=== PATIENT | female | born 1985 | race Hispanic/Latino ===

== ENCOUNTER 2019-02-21 12:07 | Emergency (ER) | payer MEDICAID ==
--- NOTE | 2019-02-21 12:28 | Event Note ---
ED Screening Note Date of service: 02/21/19 Time: 12:26 ED Screening Note: 34 y o female presents with lower pelvic cramping x 2 days LMP - 02/02/19 denies dysuris,n,v This initial assessment/diagnostic orders/clinical plan/treatment(s) is/are subject to change based on patients health status, clinical progression and re- assessment by fellow clinical providers in the ED. Further treatment and workup at subsequent clinical providers discretion. Patient/guardian urged not to elope from the ED as their condition may be serious if not clinically assessed and managed. Initial orders include: ua, upt
--- NOTE | 2019-02-21 13:18 | Emergency Department Report ---
ED Female HPI - General Chief complaint: Abdominal Pain Stated complaint: CRAMPING/POSS PREG Time Seen by Provider: 02/21/19 12:26 Source: patient Mode of arrival: Ambulatory Limitations: No Limitations - History of Present Illness Initial comments: Patient reports pelvic cramping and vaginal spotting that started last week. According to the patient her last regular cycle was five months ago Complaint: vaginal bleeding Onset/Timin -: week(s) Location: suprapubic Radiation: non-radiating Severity: moderate Severity scale (0 -10): 5 Quality: cramping Consistency: intermittent Improves with: none Worsens with: none Are you Now?: Yes (positive home test) Last Menstrual Period: 10/04/18 EDC: 07/11/19 Associated Symptoms: vaginal bleeding. denies: vaginal discharge, abdominal pain, nausea/vomiting, fever/chills, headaches, loss of appetite, dysuria, hematuria, rash, seizure, shortness of breath, syncope, weakness - Related Data Sexually active: Yes : 5 Para: 3 Previous Rx's Medication Instructions Recorded Last Taken Type metroNIDAZOLE [Flagyl] 500 mg PO Q12HR #14 tab 02/21/19 Unknown Rx Allergies Allergy/AdvReac Type Severity Reaction Status Date / Time No Known Allergies Allergy Verified 02/21/19 12:11 ED Review of Systems ROS: Stated complaint: CRAMPING/POSS PREG Other details as noted in HPI Constitutional: denies: chills, fever Eyes: denies: eye pain, eye discharge, vision change ENT: denies: ear pain, throat pain Respiratory: denies: cough, shortness of breath, wheezing Cardiovascular: denies: chest pain, palpitations, dyspnea on exertion, orthopnea, edema, syncope, paroxysmal nocturnal dyspnea Endocrine: no symptoms reported Gastrointestinal: abdominal pain. denies: nausea, diarrhea Genitourinary: urgency, discharge (BLOODY). denies: dysuria Musculoskeletal: denies: back pain, joint swelling, arthralgia Skin: denies: rash, lesions Neurological: denies: headache, weakness, paresthesias Psychiatric: denies: anxiety, depression Hematological/Lymphatic: denies: easy bleeding, easy bruising ED Past Medical Hx - Past Medical History Previous Medical History?: Yes Additional medical history: cervix opens early - Surgical History Past Surgical History?: Yes Additional Surgical History: leap x 2, - Social History Smoking Status: Current Every Day Smoker Substance Use Type: Marijuana - Medications Home Medications: Home Medications Medication Instructions Recorded Confirmed Last Taken Type metroNIDAZOLE [Flagyl] 500 mg PO Q12HR #14 tab 02/21/19 Unknown Rx ED Physical Exam - General Limitations: No Limitations General appearance: alert, in no apparent distress - Respiratory Respiratory exam: Present: normal lung sounds bilaterally. Absent: respiratory distress, wheezes, rales, rhonchi, stridor, chest wall tenderness, accessory muscle use, decreased breath sounds, prolonged expiratory - Cardiovascular Cardiovascular Exam: Present: tachycardia, normal heart sounds. Absent: normal rhythm, bradycardia, irregular rhythm, systolic murmur, diastolic murmur, rubs, gallop, clicks, JVD, S3, S4 - GI/Abdominal GI/Abdominal exam: Present: soft, tenderness (suprapubic), normal bowel sounds. Absent: distended, guarding, rebound, rigid - Rectal Rectal exam: Present: deferred - External exam: Present: normal external exam. Absent: erythema, swelling, lesions, lacerations, ecchymosis, bleeding Speculum exam: Present: normal speculum exam, vaginal discharge (scant creamy). Absent: erythema, cervical discharge, vaginal bleeding, foreign body, tissue, laceration Bi-manual exam: Present: normal bi-manual exam. Absent: cervical motion tendernes, adnexal tenderness, adnexal mass, uterine enlargement, uterine tenderness - Expanded Exam Expanded External exam: Present: normal Speculum exam: Present: cervical OS closed, vaginal discharge (scant creamy). Absent: vaginal bleeding - Extremities Exam Extremities exam: Present: normal inspection, full ROM, normal capillary refill. Absent: tenderness, pedal edema, joint swelling - Back Exam Back exam: Present: normal inspection, full ROM. Absent: tenderness, CVA tenderness (R), CVA tenderness (L), muscle spasm, paraspinal tenderness, vertebral tenderness, rash noted - Neurological Exam Neurological exam: Present: alert, oriented X3, CN II-XII intact, normal gait, reflexes normal. Absent: motor sensory deficit - Psychiatric Psychiatric exam: Present: normal affect, normal mood - Skin Skin exam: Present: warm, dry, intact, normal color. Absent: rash ED Course Vital Signs 02/21/19 02/21/19 12:25 16:41 Temperature 98.4 F Pulse Rate 103 H 94 H Respiratory 20 16 Rate Blood Pressure 137/70 Blood Pressure 125/61 [Left] O2 Sat by Pulse 97 99 Oximetry ED Medical Decision Making - Lab Data OB ULTRASOUND >= 14 WEEKS FETUS INDICATION: vaginal spotting TECHNIQUE: Transabdominal ultrasound with color Doppler imaging. COMPARISON: None FINDINGS: A single gestation intrauterine is present with breech presentation. The placenta is anterior, grade 0 and abuts the internal cervical os consistent with a marginal placenta previa. heart tones measure 162 bpm. The cervix measures 3.1 cm in length. Amniotic fluid volume is subjectively normal. CONSTANTINE was not measured. anatomical survey was not performed. Biparietal diameter is 5.1 cm which equals 21 weeks 4 days. Head circumference is 19.4 cm which equals 21 weeks 4 days. Abdominal circumference is 17.3 cm which equals 22 weeks 1 day. Femur length is 3.7 cm which equals 21 weeks 5 days. Overall estimated sonographic age is 21 weeks 5 days. EDC: 06/29/2019. HC/AC ratio: 1.1 Cephalic index: 78.7 Estimated weight 463 g +/- 89 g.. 72nd percentile. IMPRESSION: Viable single intrauterine as described. A marginal placental previa is identified. Follow-up is recommended. Lab Results 02/21/19 02/21/19 02/21/19 Range/Units 13:14 13:41 13:41 HCG, Quant 6989 H (0-4) mIU/mL Urine Color Yellow (Yellow) Urine Turbidity Clear (Clear) Urine pH 5.0 (5.0-7.0) Ur Specific Primrose 1.026 (1.003-1.030) Urine Protein <15 mg/dl (Negative) mg/dL Urine Glucose (UA) Neg (Negative) mg/dL Urine Ketones Neg (Negative) mg/dL Urine Blood Neg (Negative) Urine Nitrite Neg (Negative) Urine Bilirubin Neg (Negative) Urine Urobilinogen < 2.0 (<2.0) mg/dL Ur Leukocyte Esterase Tr (Negative) Urine WBC (Auto) 5.0 (0.0-6.0) /HPF Urine RBC (Auto) < 1.0 (0.0-6.0) /HPF U Epithel Cells (Auto) 1.0 (0-13.0) /HPF Urine Mucus 2+ /HPF Blood Type A POSITIVE Microbiology 02/21/19 Unknown Wet Prep - Final Cervix > or = 20% clue cells seen No trichomoniasis No yeast seen Many polymorphonuclear leukocytes Lab Results 02/21/19 02/21/19 02/21/19 Range/Units 13:14 13:41 13:41 HCG, Quant 6989 H (0-4) mIU/mL Urine Color Yellow (Yellow) Urine Turbidity Clear (Clear) Urine pH 5.0 (5.0-7.0) Ur Specific Primrose 1.026 (1.003-1.030) Urine Protein <15 mg/dl (Negative) mg/dL Urine Glucose (UA) Neg (Negative) mg/dL Urine Ketones Neg (Negative) mg/dL Urine Blood Neg (Negative) Urine Nitrite Neg (Negative) Urine Bilirubin Neg (Negative) Urine Urobilinogen < 2.0 (<2.0) mg/dL Ur Leukocyte Esterase Tr (Negative) Urine WBC (Auto) 5.0 (0.0-6.0) /HPF Urine RBC (Auto) < 1.0 (0.0-6.0) /HPF U Epithel Cells (Auto) 1.0 (0-13.0) /HPF Urine Mucus 2+ /HPF C.trachomatis DNA (SDA) (Not Detected) N.gonorrhoeae DNA (SDA) (Not Detected) Blood Type A POSITIVE 02/21/19 Range/Units Unknown HCG, Quant (0-4) mIU/mL Urine Color (Yellow) Urine Turbidity (Clear) Urine pH (5.0-7.0) Ur Specific Primrose (1.003-1.030) Urine Protein (Negative) mg/dL Urine Glucose (UA) (Negative) mg/dL Urine Ketones (Negative) mg/dL Urine Blood (Negative) Urine Nitrite (Negative) Urine Bilirubin (Negative) Urine Urobilinogen (<2.0) mg/dL Ur Leukocyte Esterase (Negative) Urine WBC (Auto) (0.0-6.0) /HPF Urine RBC (Auto) (0.0-6.0) /HPF U Epithel Cells (Auto) (0-13.0) /HPF Urine Mucus /HPF C.trachomatis DNA (SDA) Not detected (Not Detected) N.gonorrhoeae DNA (SDA) Not detected (Not Detected) Blood Type - Radiology Data Radiology results: image reviewed OB ULTRASOUND >= 14 WEEKS FETUS INDICATION: vaginal spotting TECHNIQUE: Transabdominal ultrasound with color Doppler imaging. COMPARISON: None FINDINGS: A single gestation intrauterine is present with breech presentation. The placenta is anterior, grade 0 and abuts the internal cervical os consistent with a marginal placenta previa. heart tones measure 162 bpm. The cervix measures 3.1 cm in length. Amniotic fluid volume is subjectively normal. CONSTANTINE was not measured. anatomical survey was not performed. Biparietal diameter is 5.1 cm which equals 21 weeks 4 days. Head circumference is 19.4 cm which equals 21 weeks 4 days. Abdominal circumference is 17.3 cm which equals 22 weeks 1 day. Femur length is 3.7 cm which equals 21 weeks 5 days. Overall estimated sonographic age is 21 weeks 5 days. EDC: 06/29/2019. HC/AC ratio: 1.1 Cephalic index: 78.7 Estimated weight 463 g +/- 89 g.. 72nd percentile. IMPRESSION: Viable single intrauterine as described. A marginal placental previa is identified. Follow-up is recommended. - Medical Decision Making During the course of ED, all other systems were unremarkable except for documentation in HPI. Radiology studies revealed Viable single intrauterine as described. A marginal placental previa is identified. Overall estimated sonographic age is 21 weeks 5 days. EDC: 06/29/2019. Laboratory studies also detected > or = 20% clue cells on microscopic examination. No vaginal bleeding was seen on physical examination, also the cervical os was closed. Patient was sent home with prescription for Flagyl and referral to follow up with Psychiatric Specialist, she verbalized understanding - Differential Diagnosis IUP@ 21 weeks, Bacterial Vaginosis, UTI, Ectopic Critical care attestation.: If time is entered above; I have spent that time in minutes in the direct care of this critically ill patient, excluding procedure time. ED Disposition Clinical Impression: Bacterial vaginosis Qualifiers: Weeks of gestation: 21 weeks Qualified Code(s): Z3A.21 - 21 weeks gestation of Disposition: DC-01 TO HOME OR SELFCARE Is pt being admited?: No Does the pt Need Aspirin: No Condition: Stable Instructions: (ED), Bacterial Vaginosis (ED) Additional Instructions: Take medication as directed. Follow up with the selective referral given at discharge. No drinking alcoholic beverages while taking prescribed antibiotics including 72 hours after completion of medications Prescriptions: metroNIDAZOLE [Flagyl] 500 mg PO Q12HR #14 tab Referrals: CHLOE SHEIKH MD [Staff Physician] - 3-5 Days LANDON LIN MD [Staff Physician] - 3-5 Days ROBEL MACE CNM [Advanced Practice Nurse] - 3-5 Days JONAH MEEKS MD [Staff Physician] - 3-5 Days Time of Disposition: 16:33
[2019-02-21 13:32] LABS: Bilirubin,Urine NEG (Negative); Blood,Urine NEG (Negative); Color,Urine Yellow (Yellow); Mucus,Urine 2+ /HPF; Protein,Urine <15 mg/dL mg/dL (Negative); RBC,Urine < 1.0 /HPF (0.0-6.0); Urobilinogen,Urine < 2.0 mg/dL (<2.0)
--- NOTE | 2019-02-21 15:48 | Ultrasound Report ---
OB ULTRASOUND >= 14 WEEKS FETUS INDICATION: vaginal spotting TECHNIQUE: Transabdominal ultrasound with color Doppler imaging. COMPARISON: None FINDINGS: A single gestation intrauterine is present with breech presentation. The placenta is anteri or, grade 0 and abuts the internal cervical os consistent with a marginal placenta previa. hea rt tones measure 162 bpm. The cervix measures 3.1 cm in length. Amniotic fluid volume is subjectively normal. CONSTANTINE was not measured. anatomical survey was not performed. Biparietal diameter is 5.1 cm which equals 21 weeks 4 days. Head circumference is 19.4 cm which equals 21 weeks 4 days. Abdominal circumference is 17.3 cm which equals 22 weeks 1 day. Femur length is 3.7 cm which equals 21 weeks 5 days. Overall estimated sonographic age is 21 weeks 5 days. EDC: 06/29/2019. HC/AC ratio: 1.1 Cephalic index: 78.7 Estimated weight 463 g +/- 89 g.. 72nd percentile. IMPRESSION: Viable single intrauterine as described. A marginal placental previa is identified. Follow-up is recommended. Signer Name: Paul Diez Jr, MD Signed: 02/21/2019 3:43 PM Workstation Name: [id number]
--- NOTE | 2019-02-21 16:12 | Ultrasound Report ---
ULTRASOUND OB TRANSVAGINAL HISTORY: Vaginal spotting. TECHNIQUE: Transvaginal ultrasound imaging. FINDINGS: 5 transvaginal ultrasound images are presented of the cervix. The cervix measures 3.1 cm in length. A marginal placenta previa is demonstrated. IMPRESSION: Marginal placenta previa. Signer Name: Paul Diez Jr, MD Signed: 02/21/2019 4:08 PM Workstation Name: [id number]
[2019-02-21 16:42] VITALS: BP 125/61
== END 2019-02-21 16:42 | disposition home or self-care (01) ==
LOC: ED 12:07
DX: O23.592 Infection of other part of genital tract in pregnancy, second trimester (principal); B96.89 Other specified bacterial agents as the cause of diseases classified elsewhere; O99.332 Smoking (tobacco) complicating pregnancy, second trimester; F12.10 Cannabis abuse, uncomplicated; Z3A.21 21 weeks gestation of pregnancy
CPT/HCPCS: 36415; 76805; 76817; 81001; 84702; 86900; 86901; 87210; 87591; 99284